=== PATIENT | female | born 1965 | race Caucasian/White ===

== ENCOUNTER 2019-05-28 06:05 | Day surgery (SDC) | payer OTHER ==
[2019-05-28] MEDS ORDERED: HYDROmorphONE 1 MG/5 ML IV SYRINGE IV (07:30)
[2019-05-28] MEDS ORDERED: FENTAnyl 50 MCG/ML VIAL IV ×3 (07:30)
[2019-05-28] MEDS ORDERED: DIPHENHYDRAMINE 50 MG INJ IV (07:30)
[2019-05-28] MEDS ORDERED: ALBUTEROL 0.083% (NEB) 2.5 MG/3 ML AMP HHN (07:30)
[2019-05-28] MEDS ORDERED: METOCLOPRAMIDE 10 MG INJ IV (07:30)
[2019-05-28] MEDS ORDERED: FENTAnyl 50 MCG/ML VIAL (07:44)
[2019-05-28] MEDS ORDERED: DESFLURANE 15 MIN (07:44)
[2019-05-28] MEDS ORDERED: PROVENTIL HFA 6.7GM INHALER (07:52)
[2019-05-28] MEDS ORDERED: LIDOCAINE 100 MG SYRINGE (08:41)
[2019-05-28] MEDS ORDERED: SUGAMMADEX SODIUM 200 MG/2 ML VIAL IV (08:41)
[2019-05-28] MEDS ORDERED: PROPOFOL 40 ML (08:41)
[2019-05-28] MEDS ORDERED: SUCCINYLCHOLINE CHLORIDE 100 MG/5 ML SYG IV (08:41)
[2019-05-28] MEDS ORDERED: ROCURONIUM 50 MG INJ (08:41)
[2019-05-28] MEDS ORDERED: CEFAZOLIN 1 GM INJ (08:41)
[2019-05-28] MEDS: HYDROmorphONE 1 MG/5 ML IV SYRINGE IV ×3 (09:15→09:30)
[2019-05-28] MEDS: ONDANSETRON 4 MG INJ IV (09:20)
[2019-05-28] MEDS: MEPERIDINE 25 MG INJ IV (09:20)
== END 2019-05-28 11:47 | disposition home or self-care (01) ==
LOC: SDS 06:05
DX: N95.0 Postmenopausal bleeding (principal); D25.0 Submucous leiomyoma of uterus; J44.9 Chronic obstructive pulmonary disease, unspecified
CPT/HCPCS: 58558; 88305